=== PATIENT | male | born 1995 | race Caucasian/White ===

== ENCOUNTER → 2020-05-12 18:04 | Outpatient (CLI) | payer OTHER, SELFPAY ==
--- NOTE | 2020-05-12 | DI.MRI.S_ITS ---
PROCEDURE: MR LUMBAR SPINE WO CON INDICATIONS: RADICULOPATHY, LUMBAR REGION TECHNIQUE: Noncontrast sagittal T1 spin echo and T2 fast echo, sagittal STIR, axial T1 and T2 fast spin echo through the lumbar spine. In cases with scoliosis, additional coronal T2 fast spin echo may be performed. COMPARISON: None. FINDINGS: Image quality: Excellent. Alignment and Curvature: No plain films are available for comparison, for numbering purposes. Thus, for the purposes of this examination, 5 lumbar type vertebral bodies will be presumed, as denoted on the montage panel. This should be confirmed and correlated with plain films, prior to any lumbar spinal intervention. Loss of normal lumbar lordosis. Bone Marrow: Marrow is of normal overall signal. No acute vertebral body compression fractures. Mild reactive signal within the endplates adjacent to the L5-S1 intervertebral disc. Spinal Cord: Conus medullaris terminates at the L1-L2 disc space level. Visualized cord demonstrates normal signal and size. Paraspinous Soft Tissues: No paravertebral masses. T12-L1: Normal appearance. L1-L2: Normal appearance. L2-L3: Normal appearance. L3-L4: Normal appearance. L4-L5: Mild facet and ligamentum flavum hypertrophy. Mild canal stenosis. No foraminal stenosis. L5-S1: Moderate disc height loss and desiccation. Mild diffuse disc bulge with superimposed left paracentral broad-based protrusion. Mild facet and ligamentum flavum hypertrophy. Mild canal stenosis. Mild bilateral foraminal stenosis. Compression and posterior deviation of the left S1 nerve root within the lateral recess. IMPRESSION: 1. L5-S1 disc protrusion, causing left S1 nerve root compression as described above. Recommend correlation with clinical symptoms to ascertain relevance of this finding. 2. 5 lumbar type vertebral bodies were presumed for the current report. Plain films of the lumbar spine are recommended for confirmation, prior to any lumbar spinal intervention. Dictated by: Lidia Allison M.D. on 05/13/2020 at 9:40 Approved by: Lidia Allison M.D. on 05/13/2020 at 9:42
== END ==
PROVIDERS: Referring Provider Family Medicine; Visit Provider Family Medicine
DX: M51.17 Intervertebral disc disorders with radiculopathy, lumbosacral region (principal); M48.07 Spinal stenosis, lumbosacral region
CPT/HCPCS: 72148

== ENCOUNTER → 2020-07-17 09:39 | Outpatient (CLI) | payer OTHER, SELFPAY ==
[2020-07-17 11:59] LABS: COVID19 -Nasal RAPID Negative (Negative)
== END ==
PROVIDERS: Visit Provider Physician Assistant
DX: Z20.822 Contact with and (suspected) exposure to COVID-19 (principal); Z01.812 Encounter for preprocedural laboratory examination
CPT/HCPCS: 87635

== ENCOUNTER 2020-07-19 13:40 | Day surgery (SDC) | payer OTHER, SELFPAY ==
[2020-07-19] VITALS (9 sets, daily range): BP systolic 115–155; BP diastolic 62–94; PULSE 84–100; RESP 12–14; TEMP 36.4–37.2; O2SAT 97–100; BMI 31.4
--- NOTE | 2020-07-19 | DI.RAD.S_ITS ---
PROCEDURE: XR LUMBAR SPINE 2-3V INDICATIONS: L5-S1 MICRODISCETOMY TECHNIQUE: 2 views of the lumbar spine were acquired. COMPARISON: None. FINDINGS: Intraoperative localization with marker overlying L5-S1. IMPRESSION: Intraoperative localization. Dictated by: Isis Viera M.D. on 07/19/2020 at 17:07 Approved by: Isis Viera M.D. on 07/19/2020 at 17:07
--- NOTE | 2020-07-19 15:42 | PM.PREOP ---
Pre-operative Note COVID-19 COVID-19 status: Negative Result date/Date tested (Pos, Neg/Pending): 07/17/20 Interval Note History & Physical reviewed/Exam performed by Physician: Yes Changes to H&P: No
[2020-07-19] MEDS: CEFAZOLIN 1 GM VIAL 2 GM IV (16:12)
--- NOTE | 2020-07-19 16:28 | SUR.OPER ---
Prone on spine table, head in foam head support, padded chest and pelvic supports, gel pad at knees, lower legs supported by pillows; nipples, genitalia and toes free of pressure, arms secured on foam padded arm boards at <90 degrees abduction. Tape over blanket at thigh secured to table.
[2020-07-19] MEDS: BUPIVACAINE 0.25% W/ EPI 30 ML VIAL INJ (16:33)
[2020-07-19] MEDS: methylPREDNISolone acet DEPO 40 MG/ML VIAL INJ (16:34)
--- NOTE | 2020-07-19 17:11 | PM.OP.1 ---
Operative Date/Time/Diagnoses Date of procedure: 07/19/20 Time of procedure: 16:11 Pre-op diagnosis: 1. L5-S1 disc herniation 2. Lumbar radiculopathy Post-op diagnosis: same Procedure & Clinicians Procedure: 1. L5-S1 left microdiscectomy 2. Utilization of microsurgical technique and operating microscope Same procedure as scheduled: Yes Indications: Patient has been having chronic back pain and worsening lumbar radiculopathy. Patient failed multiple conservative management with worsening pain weakness and numbness in her lower extremity. Patient has been having difficulty performing activity of daily living. After discussing risks benefits of treatment options, patient elected proceed with surgery. Surgeon: Bhumika Garrison Insurance Risk Analyst: Wellington Delgado Click Yes if Unassisted: No Anesthesia Type: General Operative Notes Closure Type: primary Specimen(s): none sent Estimated Blood Loss (mL): 5 Blood products transfused: none Procedure in detail: Patient was seen in the preoperative area. Risks and benefits of the surgery was discussed with the patient. Informed consent was obtained from the patient and placed in the chart. Surgical site was marked. Patient was taken to the operative room. General anesthesia was administered. Prophylactic antibiotic was given to the patient less than 30 min before the incision was made. Patient was placed into a prone position on the Dillon table. Patient's back was then prepped and draped in the sterile fashion. Time-out was performed at this time. Using AP and lateral C-arm imaging the interval between L5-S1 was identified and marked on patient's back. A 1 inch incision 1 in from midline was made on the left side. The fascia was incised in line with skin incision. Globus MARS retractors was placed inside the incision and docked onto the L5 lamina. Using microsurgical technique and operating microscope, a L5 laminotomy was performed using a Kerrison rongeur. Liagamentum flavum was resected at the site of the laminotomy. The disc space at L5-S1 was identified. Microdiscectomy was performed by incising the annulus with #11 blade. Microcurettes and pituitary was used to removed herniated disc fragments of disc from the epidural space. After the microdiskectomy was completed, the area medial lateral superior and inferior to the area of the microdiskectomy was inspected and explored using a micro curette. No other impinging structure was identified. The wound was then irrigated with sterile normal saline. 40 mg Depo-Medrol was placed into the epidural space. The deep fascia was closed with 1-0 Vicryl. The subcutaneous tissue was closed with 2-0 Vicryl. The skin was closed with skin lior. Patient tolerated the procedure well. There were no complications. Patient was transferred recovery room in stable condition. Complications: none Post-operative Condition: stable Disposition: PACU Plan for aftercare: Discharge to home
[2020-07-19] MEDS: fentaNYL 100 MCG/2 ML INJ IV ×2 (17:59→18:15)
[2020-07-19] MEDS: HYDROMORPHONE 2 MG INJ IV (18:02)
[2020-07-19] MEDS: OXYCODONE/ACETAMINOPHEN 5/325 TABLET 1 TAB PO (18:07)
[2020-07-19] MEDS: OXYCODONE IR 5 MG TABLET PO (18:19)
--- NOTE | 2020-07-19 19:15 | SUR.PHASEII ---
Ondasetron 4mg ODT SL given to pt for c/o nausea as per order from Dr Durand at 1903. Attempts to enter order indicate medicine is currently available, but is not reflected on the EMAR and unable to scan dose given. Medication appears to be effective. No further c/o nausea. No vomiting.
== END 2020-07-19 19:13 | disposition home or self-care (01) ==
PROVIDERS: PCP Family Medicine; Referring Provider Orthopaedic Surgery Orthopaedic Surgery of the Spine; Visit Provider Orthopaedic Surgery Orthopaedic Surgery of the Spine
PROC: (CPT 63030; principal; 2020-07-19 15:45)
DX: M51.16 Intervertebral disc disorders with radiculopathy, lumbar region (principal)
CPT/HCPCS: 63030; 72100; 76000; 82962; J0690; J1030; J1170; J2250; J2704; J3010

== ENCOUNTER → 2021-08-31 08:57 | Outpatient (CLI) | payer OTHER, SELFPAY ==
--- NOTE | 2021-08-31 | DI.RAD.S_ITS ---
PROCEDURE: XR SHOULDER RT MIN 2V INDICATIONS: Other specified arthritis, unspecified site TECHNIQUE: 3 views of the shoulder were acquired. COMPARISON: None. FINDINGS: Bones: No fractures or dislocations. No suspicious bony lesions. Visualized ribs appear intact. Soft tissues: No suspicious soft tissue calcifications. IMPRESSION: No evidence acute bony abnormality of the right shoulder Dictated by: Aly Mcclendon M.D. on 08/31/2021 at 16:02 Approved by: Aly Mcclendon M.D. on 08/31/2021 at 16:03
--- NOTE | 2021-08-31 | DI.RAD.S_ITS ---
PROCEDURE: XR HIP W PEL IF DONE EMG MIN 4V INDICATIONS: Other specified arthritis, unspecified site TECHNIQUE: AP pelvis with lateral view(s) of the bilateral hip(s). COMPARISON: None. FINDINGS: Bones: No fractures or dislocations. Pelvic ring appears intact. No suspicious bony lesions. No erosions or periarticular osteophytes. Questionable minimal bilateral degenerative hip joint space narrowing. Soft tissues: The visualized bowel gas pattern is normal. No suspicious soft tissue calcifications. IMPRESSION: No erosions or periarticular osteophytes. Questionable minimal bilateral degenerative hip joint space narrowing. Dictated by: Isis Viera M.D. on 08/31/2021 at 12:54 Approved by: Isis Viera M.D. on 08/31/2021 at 12:56
--- NOTE | 2021-08-31 | DI.RAD.S_ITS ---
PROCEDURE: XR KNEE LT 3V INDICATIONS: Other specified arthritis, unspecified site TECHNIQUE: Three views of the knee were acquired. COMPARISON: None. FINDINGS: Bones: No fractures or dislocations. No suspicious bony lesions. Mild symmetric tricompartment joint space loss. Soft tissues: No joint effusion. No suspicious soft tissue calcifications. IMPRESSION: Mild tricompartment joint space loss. Dictated by: Rosalinda Perez M.D. on 08/31/2021 at 10:41 Approved by: Rosalinda Perez M.D. on 08/31/2021 at 10:42
--- NOTE | 2021-08-31 | DI.RAD.S_ITS ---
PROCEDURE: XR KNEE RT 3V INDICATIONS: Other specified arthritis, unspecified site TECHNIQUE: 3 views of the knee were acquired. COMPARISON: None. FINDINGS: Bones: No fractures or dislocations. No suspicious bony lesions. Mild and symmetric tricompartment joint space loss. Soft tissues: No joint effusion. No suspicious soft tissue calcifications. IMPRESSION: Mild joint space loss. Dictated by: Rosalinda Perez M.D. on 08/31/2021 at 10:42 Approved by: Rosalinda Perez M.D. on 08/31/2021 at 10:42
== END ==
PROVIDERS: PCP Physician Assistant; Referring Provider Chiropractor; Visit Provider Chiropractor
DX: M13.80 Other specified arthritis, unspecified site (principal)
CPT/HCPCS: 73030; 73522; 73562